=== PATIENT | male | born 2000 | race Caucasian/White ===

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

== ENCOUNTER 2021-07-25 00:43 | Emergency (ER) | payer MEDICAID ==
[~2021-07-25] VITALS: Ht 167.6 cm; Wt 54.5 kg
[2021-07-25 03:55] VITALS: BP 108/77
== END 2021-07-25 03:56 | disposition home or self-care (01) ==
LOC: ER 00:43
DX: Z13.89 Encounter for screening for other disorder (principal); Z20.822 Contact with and (suspected) exposure to COVID-19; R06.02 Shortness of breath; R05.9 Cough, unspecified; J45.909 Unspecified asthma, uncomplicated; F41.9 Anxiety disorder, unspecified; Z79.899 Other long term (current) drug therapy
CPT/HCPCS: 71045; 87635; 99284; C9803; 96372

== ENCOUNTER 2024-11-06 03:50 | Emergency (ER) | payer MEDICAID ==
[~2024-11-06] VITALS: Ht 170.2 cm; Wt 59.1 kg
[~2024-11-06 03:50] MED LIST changes: +ALBU6.7H14 INH; -ALBU6.7H9 INH
[2024-11-06 04:25] VITALS: TEMP 98.1
[2024-11-06] MEDS ORDERED: ONDA-243 PO (04:26)
[2024-11-06] MEDS ORDERED: OMEP40CA21 PO (04:26)
[2024-11-06] MEDS: diphenhydrAMINE 50 mg/ml inj IV ONE (04:41)
[2024-11-06] MEDS: normal saline 1000ML IV soln IVB ONE (04:42)
[2024-11-06] MEDS: haloperidol lactate 5mg/ml inj IM ONE (04:42)
[2024-11-06 04:58] LABS: BASOPHILS # (AUTO) 0.1 X10'3 (0-0.2); BASOPHILS % (AUTO) 0.7 % (0-1); EOSINOPHILS # (AUTO) 0.2 X10'3 (0-0.9); EOSINOPHILS % (AUTO) 1.3 % (0-6); HEMATOCRIT 38.5 % (42.0-52.0); LYMPHOCYTES # (AUTO) 1.2 X10'3 (1.1-4.8); MEAN CORPUSCULAR HEMOGLOBIN 29.9 PG (27.0-31.0); MEAN CORPUSCULAR HGB CONC 33.7 g/dL (33.0-36.5); MEAN CORPUSCULAR VOLUME 88.8 FL (78-98); MONOCYTES # (AUTO) 1.3 X10'3 (0-0.9); MONOCYTES % (AUTO) 10.9 % (2-12); NEUTROPHILS # (AUTO) 9.3 X10'3 (1.8-7.7); NEUTROPHILS % (AUTO) 77.1 % (42-75); PLATELET COUNT 263 X10'3 (140-440); RED BLOOD COUNT 4.33 X10'6 (4.70-6.10); RED CELL DISTRIBUTION WIDTH 13.9 % (11.5-14.5)
[2024-11-06 05:11] LABS: ALANINE AMINOTRANSFERASE 37 U/L (12-78); ALBUMIN 3.4 G/DL (3.4-5.0); ALBUMIN/GLOBULIN RATIO 1.1 (1.1-1.5); ALKALINE PHOSPHATASE 108 IU/L (46-116); ANION GAP 5 (8-16); ASPARTATE AMINO TRANSFERASE 28 U/L (10-37); BILIRUBIN,TOTAL 0.3 MG/DL (0.1-1.0); BLOOD UREA NITROGEN 9 MG/DL (7-18); BUN/CREATININE RATIO 11.4 (10.0-20.0); CALCIUM 8.4 MG/DL (8.5-10.1); CHLORIDE 105 MMOL/L (99-107); CREATININE 0.79 MG/DL (0.60-1.10); GLUCOSE 95 MG/DL (70-104); LIPASE 63 U/L (16-77); POTASSIUM 3.3 MMOL/L (3.5-5.1); SODIUM 140 MMOL/L (135-145); TOTAL CARBON DIOXIDE 29.7 MMOL/L (24-32); TOTAL PROTEIN 6.6 G/DL (6.4-8.2); eCRCL 122 ML/MIN; eGFR > 90 ML/MIN
[2024-11-06 05:24] VITALS: BP 119/89; PULSE 89; RESP 16; O2SAT 98
== END 2024-11-06 05:51 | disposition home or self-care (01) ==
LOC: ER 03:51
DX: R11.2 Nausea with vomiting, unspecified (principal); R10.11 Right upper quadrant pain; J45.909 Unspecified asthma, uncomplicated; K21.9 Gastro-esophageal reflux disease without esophagitis; Z87.11 Personal history of peptic ulcer disease; Z87.891 Personal history of nicotine dependence; Z88.0 Allergy status to penicillin; Z79.899 Other long term (current) drug therapy
CPT/HCPCS: 36415; 80053; 83690; 85025; 96361; 96372; 96374; 99284; J1200; J1630; J7030

== ENCOUNTER 2025-01-15 13:36 | Emergency (ER) | payer MEDICAID ==
[~2025-01-15] VITALS: Ht 170.2 cm; Wt 55.0 kg
[~2025-01-15 13:36] MED LIST changes: +ONDA-243 PO
[2025-01-15 13:40] VITALS: BP 118/87; PULSE 94; RESP 18; O2SAT 97
[2025-01-15] MEDS ORDERED: HYDR-3686 PO (14:40)
[2025-01-15] MEDS ORDERED: SKIN30CL4 TOP (14:40)
[2025-01-15] MEDS ORDERED: PRED50TA PO (14:40)
[2025-01-15] MEDS: predniSONE 20 mg tablet PO ONE (14:50)
[2025-01-15 15:05] VITALS: TEMP 98.1
== END 2025-01-15 15:07 | disposition home or self-care (01) ==
LOC: ER 13:37
DX: L23.7 Allergic contact dermatitis due to plants, except food (principal); J45.909 Unspecified asthma, uncomplicated; F41.9 Anxiety disorder, unspecified; Z88.0 Allergy status to penicillin
CPT/HCPCS: 99283; J7512

== ENCOUNTER 2025-02-05 13:07 | Emergency (ER) | payer MEDICAID ==
[~2025-02-05] VITALS: Ht 167.6 cm; Wt 63.6 kg
[~2025-02-05 13:07] MED LIST changes: +HYDR-3686 PO; +PRED50TA PO; +SKIN30CL4 TOP
[2025-02-05 13:14] VITALS: BP 123/68; PULSE 82; RESP 18; TEMP 98; O2SAT 100
--- NOTE | 2025-02-05 13:48 | RADIOLOGY REPORT ---
CLINICAL INDICATION: HAND PAIN TECHNIQUE: 4 radiographic views of the right hand were obtained. Comparison: HAND, COMPLETE (3VW MIN) on DOS: 11/07/20 FINDINGS/IMPRESSION: There is fracture through the radial base of the 3rd digit proximal phalanx with Comminuted fracture of the base of the 5th digit of unknown chronicity without significant adjacent soft tissue edema. Correlation with point tenderness is recommended.
--- NOTE | 2025-02-05 13:51 | Physician Documentation ---
History of Present Illness ~ Chief Complaint: Hand pain Stated Complaint: R HAND PAIN Time Seen by MD: 13:42 OK to notify your PCP?: No Primary Medical Doctor: No PMD HPI 24-YEAR-OLD MALE PRESENTS WITH A COMPLAINT OF RIGHT HAND PAIN. STATES HE HAS PREVIOUS FRACTURES ON THE HAND THAT POORLY HEALED BECAUSE HE DID NOT FOLLOW UP WITH THE ORTHOPEDICS.. SAYS YESTERDAY WHILE HE WAS AT WORK HE FELT A CRUNCH IN HIS HAND AND HAS HAD PAIN SINCE THEN Day of Onset: February 05, 2025 Tetanus within 5 years: No Medication Reconciliation Allergies: Coded Allergies: Penicillins (Verified Allergy, Unknown, 11/06/24) Scheduled Albuterol Sulfate (Proventil Hfa), 2 PUFFS INH Q6H Prednisone (Prednisone), 1 TAB PO DAILY Skin Cleanser Combination No.8 (Zanfel), 1 APPLIC TOP Q8H Scheduled PRN Hydroxyzine Hcl* (Atarax*), 1-2 TAB PO Q6H PRN for ITCHING ONDANSETRON ODT 4mg tablet (Ondansetron Odt), 1 TABLET PO Q6H PRN for benitez sea/vomiting Past Medical History Past Medical History: Asthma, *GI/HEPATOBILIARY*, GERD, Peptic Ulcer Disease, Anxiety Past Surgical History: no surgical history Alcohol Use: None Drug Use: none Lives In: Home Review of Systems All Other Systems at this time: Reviewed and Negative ROS As stated above in the HPI, otherwise all systems are reviewed and negative. Physical Exam Vital Signs: Temperature: 98.0, Source: Temporal, Heart Rate: 82, Respiratory Rate: 18, BP: 123/68, Pulse Oximetry: 100, Weight: 63.640 Oxygen Flow Rate: 0 Physical Exam General: Alert, no apparent distress. HEENT: PERRL, EOMI, no injection, moist mucous membranes. Extremities: DEFORMITY IN THE RIGHT HAND 4TH METATARSAL, SWELLING Neurologic: Oriented x4. Psychiatric: Normal mood and affect. Skin: Normal color, warm and dry. No edema, no ecchymosis. Progress Results/Orders Results/Orders Orders - CHARISMA DEJESUS [employer] MANA[employer] Ortho Orders (02/05/25 ) Vital Signs 02/05/25 13:14 Temp 98.0 Pulse 82 Resp 18 B/P (MAP) 123/68 Pulse Ox 100 O2 Flow Rate 0 Medical Decision Making Findings SPLINT THE PATIENT AND HAVE HIM FOLLOW UP IN THE OUTPATIENT SETTING GOING TO ENCOURAGE HIM TO DO SO. 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 HE WAS ADVISED THAT THIS IS NOT THE BEST PLAN WE HAVE AN ACUTE FRACTURE. HE HE CONTINUED TO REFUSE. WILL BE DISCHARGING HIM. ADVISED TO FOLLOW UP WITH THE ORTHOPEDIC Hand Diff Dx:Considerations: Include: Abrasion, Arthritis, Contusion, DJD, Felon, Fracture-carpal, Fracture-metacarpal, Fracture-phalynx, Fracture-radius, Fracture-ulna, Gout, Hematoma, Herpetic yobany, Laceration, Neurovascular injury, Open fracture, Paronychia, Rheumatoid arthritis, Septic, Sprain, Subungual hematoma, Tenosynovitis, Volar plate injury, Cellulitis, Malunion, Other Departure Disposition: 01 HOME / SELF CARE / HOMELESS Impression: Primary Impression: Fracture of hand Condition: Stable Discharge Instructions: Fracture, Hand Referrals: NO PRIMARY CARE PROVIDER (PCP) TAY NEGRON MD Education Educated: Patient Educated regarding: diagnosis Signature Scribe Signature: BV Attestation: The note accurately reflects work and decisions made by me.Charisma Dejesus - BETHANIE 02/05/25 15:39 CHARISMA DEJESUS NP February 05, 2025 13:51
== END 2025-02-05 14:41 | disposition home or self-care (01) ==
LOC: ER 13:07
DX: S62.91XA Unspecified fracture of right hand, initial encounter for closed fracture (principal); J45.909 Unspecified asthma, uncomplicated; Z88.0 Allergy status to penicillin; X58.XXXA Exposure to other specified factors, initial encounter; Y93.89 Activity, other specified; Y92.89 Other specified places as the place of occurrence of the external cause; Y99.0 Civilian activity done for income or pay
CPT/HCPCS: 73130; 99283; A6446; A6449

== ENCOUNTER 2025-03-26 19:07 | Emergency (ER) | payer MEDICAID ==
[~2025-03-26] VITALS: Ht 175.3 cm; Wt 61.6 kg
[~2025-03-26 19:07] MED LIST changes: -HYDR-3686 PO
[2025-03-26 19:24] VITALS: TEMP 97.6
--- NOTE | 2025-03-26 21:22 | Physician Documentation ---
History of Present Illness ~ Chief Complaint: Back Pain Stated Complaint: LOWER BACK PAIN Time Seen by MD: 19:32 Primary Medical Doctor: No PMD HPI Patient is seen today with complaints of left lower back pain after he slipped and fell while hiking. Patient states this happened just earlier today and he is now having pain of the lower back on the left side. He denies any numbness or tingling of his upper or lower extremities and denies any saddle anesthesia or changes in bowel or bladder habits. He has no other concern or complaint at this time. Medication Reconciliation Allergies: Coded Allergies: Penicillins (Verified Allergy, Unknown, 03/26/25) <5 years, rash, treatment required, PEN-FAST 5 Scheduled Albuterol Sulfate (Proventil Hfa), 2 PUFFS INH Q6H Prednisone (Prednisone), 1 TAB PO DAILY Skin Cleanser Combination No.8 (Zanfel), 1 APPLIC TOP Q8H Scheduled PRN ONDANSETRON ODT 4mg tablet (Ondansetron Odt), 1 TABLET PO Q6H PRN for nausea/vomiting Past Medical History Past Medical History: Asthma, *GI/HEPATOBILIARY*, GERD, Peptic Ulcer Disease, Anxiety Past Surgical History: no surgical history Alcohol Use: None Drug Use: none Lives In: Home Review of Systems Constitutional: Denies: chills, fever, weakness Eyes: Denies: pain, blurred vision ENT: Denies: ear pain, nose pain, throat pain, mouth pain Respiratory: Denies: cough, shortness of breath Cardiovascular: Denies: chest pain, palpitations Gastrointestinal: Denies: abdominal pain, nausea, vomiting Genitourinary: Denies: burning, dysuria Male Genitalia: Denies: penile discharge, testicular pain Neurological: Denies: headache, dizziness Musculoskeletal: Denies: pain, swelling Integumentary: Denies: rash, lesions Allergic/Immunologic: Denies: hives, itching Hematologic/Lymphatic: Denies: no symptoms reported Psychiatric: Denies: depression, anxiety Physical Exam Physical Exam Vital Signs: Temperature: 97.6, Heart Rate: 102, Respiratory Rate: 16, BP: 103/65, Pulse Oximetry: 98, Weight: 61.580 Physical Exam General: Awake and Alert, no acute distress. HEENT: Conjunctiva pink, Sclera clear, Mucus Membranes moist. Neck: Supple without masses and tenderness. Resp: Unlabored. Lungs clear to auscultation bilaterally. Heart: Regular Rate and rhythm, normal S1 and S2 without murmur, rub or gallop. Musculoskeletal: Patient on exam does have significant tenderness to palpation of the SI joint on the left side only, no significant ecchymosis and no abrasion noted, patient has significant decreased range of motion of the lumbar spine in all planes of motion, patient is neurovascularly intact distally of the bilateral lower extremities and motor function and strength intact distally. Extremities: No cyanosis,clubbing or edema. Skin: Warm and Dry. Progress Results/Orders Results/Orders Vital Signs 03/26/25 03/26/25 19:24 20:17 Temp 97.6 Pulse 89 102 Resp 15 16 B/P (MAP) 117/66 103/65 (78) Pulse Ox 98 98 Medical Decision Making Findings Patient is seen today with complaints of left lower back pain after he slipped and fell while hiking. Patient states this happened just earlier today and he is now having pain of the lower back on the left side. He denies any numbness or tingling of his upper or lower extremities and denies any saddle anesthesia or changes in bowel or bladder habits. He has no other concern or complaint at this time. Patient was given Toradol 30 mg IM and Tylenol 975 mg by mouth in the ED tonight. Prescription of meloxicam and Tylenol sent to patient's pharmacy to be taken as prescribed. Patient will follow up with primary care in 2-5 days if no better as needed sooner. Return to ED with any worsening, concerning or changing symptoms. Departure Disposition: 01 HOME / SELF CARE / HOMELESS Impression: Primary Impression: Low back pain Qualified Codes: M54.50 - Low back pain, unspecified Condition: Improved Discharge Instructions: Lumbosacral Strain Additional Instructions: Patient was given Toradol 30 mg IM and Tylenol 975 mg by mouth in the ED tonight. Prescription of meloxicam and Tylenol sent to patient's pharmacy to be taken as prescribed. Patient will follow up with primary care in 2-5 days if no better as needed sooner. Return to ED with any worsening, concerning or changing symptoms. Referrals: NO PRIMARY CARE PROVIDER (PCP) Prescriptions Acetaminophen (Tylenol Extra Strength) 500 Mg Tablet 2 TAB PO Q6H PRN PRN for pain or fever for 7 Days, #56 TAB Prov: REGINA EL 03/26/25 Meloxicam (Meloxicam) 15 Mg Tablet 1 TAB PO DAILY for 30 Days, #30 TAB 0 Refills Prov: REGINA EL 03/26/25 Signature Scribe Signature: No scribe Attestation: No scribe REGINA EL Mar 26, 2025 21:22
[2025-03-26] MEDS ORDERED: MELO-102 PO (21:23)
[2025-03-26] MEDS ORDERED: ACET-1025 PO (21:23)
[2025-03-26] MEDS: ketorolac trometh 30MG/ML vial 30 MG/ML VIAL IM STA (21:52)
[2025-03-26 21:57] VITALS: BP 117/69; PULSE 71; RESP 16; O2SAT 98
== END 2025-03-26 21:59 | disposition home or self-care (01) ==
LOC: ER 19:08
DX: M54.50 Low back pain, unspecified (principal); J45.909 Unspecified asthma, uncomplicated; Y93.01 Activity, walking, marching and hiking; Z88.0 Allergy status to penicillin; W01.0XXA Fall on same level from slipping, tripping and stumbling without subsequent striking against object, initial encounter; Y92.89 Other specified places as the place of occurrence of the external cause; Y99.8 Other external cause status
CPT/HCPCS: 96372; 99284; J1885

== ENCOUNTER 2025-05-10 16:57 | Emergency (ER) | payer MEDICAID ==
[~2025-05-10] VITALS: Ht 167.6 cm; Wt 64.5 kg
[~2025-05-10 16:57] MED LIST changes: +MELO-102 PO
[2025-05-10 17:01] VITALS: BP 118/72; PULSE 78; RESP 18; O2SAT 99
--- NOTE | 2025-05-10 17:20 | RADIOLOGY REPORT ---
EXAM: DI ELBOW, COMPLETE (3VW MIN) CLINICAL HISTORY: ELBOW PAIN RIGHT COMPARISON: None TECHNIQUE: DI ELBOW, COMPLETE (3VW MIN) Findings/Impression: 3 views of the right elbow. There is no evidence of an acute fracture, dislocation, blastic, or lytic lesions. Plate and screw fixation of the proximal ulna. No joint effusion or superficial soft tissue abnormalities.
--- NOTE | 2025-05-10 17:33 | Physician Documentation ---
History of Present Illness ~ Chief Complaint: Elbow pain Stated Complaint: R ELBOW PAIN Time Seen by MD: 17:12 Primary Medical Doctor: No PMD HPI Patient is a 24-year-old male that presents to the emergency department for evaluation of right elbow pain. 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 Patient reports he has a history of plate and s crews in that elbow from a previous injury several years ago. Patient reports pain and swelling. Denies taking any Tylenol or ibuprofen at this time. Patient denies any other past medical history and any other concerns at this time. Tetanus within 5 years: No Medication Reconciliation Allergies: Coded Allergies: Penicillins (Verified Allergy, Unknown, 05/10/25) <5 years, rash, treatment required, PEN-FAST 5 Scheduled Albuterol Sulfate (Proventil Hfa), 2 PUFFS INH Q6H Meloxicam (Meloxicam), 1 TAB PO DAILY Prednisone (Prednisone), 1 TAB PO DAILY Skin Cleanser Combination No.8 (Zanfel), 1 APPLIC TOP Q8H Scheduled PRN ONDANSETRON ODT 4mg tablet (Ondansetron Odt), 1 TABLET PO Q6H PRN for benitez sea/vomiting Past Medical History Past Medical History: Asthma, *GI/HEPATOBILIARY*, GERD, Peptic Ulcer Disease, Anxiety Past Surgical History: no surgical history Alcohol Use: None Drug Use: none Lives In: Home Review of Systems ROS As stated above in the HPI, otherwise all systems are reviewed and negative. Physical Exam Vital Signs: Temperature: 97.8, Source: Temporal, Heart Rate: 78, Respiratory Rate: 18, BP: 118/72, Pulse Oximetry: 99, Weight: 64.500 Physical Exam VITALS: Reviewed and as above. GENERAL: Alert, no apparent distress. HEENT: Normocephalic, atraumatic, PERRL, EOMI, dry mucosa, no erythema RESPIRATORY: Lungs clear, normal breath sounds, no respiratory distress. CHEST: No accessory muscle use, no retractions CV: Regular rate, rhythm, no edema, no murmur, No: JVD GI: Soft, non-tender, bowels sounds present, no rebound, guarding, or rigidity BACK: No CVA tenderness, or swelling MUSCULOSKELETAL No deformities, edema noted to the right elbow reduced range of motion tenderness with examination. SKIN: Warm and dry, no rash NEURO: Oriented x4, No motor or sensory deficit PSYCH: Normal mood and affect, no agitation Progress Results/Orders Results/Orders Vital Signs 05/10/25 17:01 Temp 97.8 Pulse 78 Resp 18 B/P (MAP) 118/72 Pulse Ox 99 Medical Decision Making Findings The Pt was found to have no fracture of the right elbow her imaging. Previous injury with plate and screws noted on imaging. The Pt is otherwise well appearing, hemodynamically stable, and shows no evidence of neurovascular injury or compartment syndrome. Patient was placed in Derek wrap and will follow up with PMD for ortho referal if needed. Patient will follow up with primary care provider. Patient will return to the emergency department if he has any worsening of his current symptoms or any additional concerning symptoms we discussed here today i.e. increased swelling inability to bend arm increased erythema significant pain fever chills or any other concerning symptoms. Tylenol ibuprofen as needed for discomfort. Rest ice elevation as tolerated. General Diff Dx:Considerations: Include: Abrasion, Contusion, Fracture, Hematoma, Laceration, Malunion, Neurovascular injury, Open fracture, Sprain, Ulcer, Other Elbow Diff Dx:Considerations: Include: Abrasion, Arthritis, Contustion, DJD, Fracture-humerus, Fracture-radial head, Fracture-radius, Fracture-ulna, Gout, Hematoma, Laceration, Neurovascular injury, Olecranon bursitis, Open fracture, Osteomyelitis, Radial head subluxation, Rheumatoid arthritis, Septic, Sprain, Ulcer, Other Departure Impression: Primary Impression: Elbow injury Additional Impressions: Pain in right elbow Edema of elbow Condition: Stable Additional Instructions: The Pt was found to have no fracture of the right elbow her imaging. Previous injury with plate and screws noted on imaging. The Pt is otherwise well appearing, hemodynamically stable, and shows no evidence of neurovascular injury or compartment syndrome. Patient was placed in Derek wrap and will follow up with PMD for ortho referal if needed. Patient will follow up with primary care provider. Patient will return to the emergency department if he has any worsening of his current symptoms or any additional concerning symptoms we discussed here today i.e. increased swelling inability to bend arm increased erythema significant pain fever chills or any other concerning symptoms. Tylenol ibuprofen as needed for discomfort. Rest ice elevation as tolerated. Referrals: NO PRIMARY CARE PROVIDER (PCP) Education Educated regarding: diagnosis, treatment, need for follow up FIDELIA DONNELLY CLEANER GREASER May 10, 2025 17:33
[2025-05-10] MEDS ORDERED: ibuprofen tablet 400 MG TABLET PO ONE (17:35)
[2025-05-10 17:42] VITALS: TEMP 97.8
== END 2025-05-10 17:44 | disposition home or self-care (01) ==
LOC: ER 16:58
DX: M25.521 Pain in right elbow (principal); R60.0 Localized edema; J45.909 Unspecified asthma, uncomplicated; K21.9 Gastro-esophageal reflux disease without esophagitis; F41.9 Anxiety disorder, unspecified; Z88.0 Allergy status to penicillin; Z79.899 Other long term (current) drug therapy
CPT/HCPCS: 73080; 99283; A6449